=== PATIENT | male | born 1970 | race Caucasian/White ===

== ENCOUNTER 2022-07-20 09:25 | Outpatient (CLI) | payer BC ==
[2022-07-20 09:40] LABS: #Basophils 0.1 thou/uL (0.0-0.2); #Lymphocytes 1.2 thou/uL (1.20-3.40); #Monocytes 0.5 thou/uL (0.11-0.59); #Neutrophils 3.5 thou/uL (1.40-6.50); %Basophils 1.2 % (0.0-1.0); %Eosinophils 0.1 % (0.0-10.0); %Lymphocytes 23.1 % (21.0-51.0); %Monocytes 9.9 % (0.0-10.0); %Neutrophils 65.8 % (42.0-75.0); Hemoglobin 14.7 g/dL (14.0-18.0); Mean Corpuscular HGB CONC 31.7 g/dL (32.0-36.0); Mean Corpuscular Hemoglobin 28.4 pg (27.0-31.0); Mean Corpuscular Volume 89.5 fL (78.0-98.0); Mean Platelet Volume 11.4 fL (7.4-10.4); Platelet Count 182 thou/uL (130-400); RBC Distribution Width 11.6 % (11.5-14.5); White Blood Cell (WBC) Count 5.3 thou/uL (4.8-10.8)
[2022-07-20 09:49] LABS: Bilirubin Negative (Negative); Blood, Urine Negative (Negative); Clarity Slightly Cloudy (Clear); Glucose, Urine (Dipstick) Negative (Negative); Ketone, Urine Negative (Negative); Leukocyte Negative (Negative); Nitrite Negative (Negative); Protein, Urine (Dipstick) Negative (Neg-Trace); Specific Gravity, Urine 1.025 (1.005-1.030); Urobilinogen 0.2 mg/dL (Less than 2)
[2022-07-20 09:57] LABS: Bacteria/HPF None Seen HPF (None Seen); Squamous Epithelial 0-3 HPF (0-3); Transitional Epithelial 0-3 HPF (None Seen); WBC/HPF 0-3 HPF (0-3)
[2022-07-20 10:00] LABS: ALT (SGPT) 26 U/L (8-55); AST (SGOT) 19 U/L (5-34); Albumin 4.5 g/dL (3.5-5.0); Alkaline Phosphatase 98 U/L (40-110); Anion Gap 12 mmol/L (10-20); BUN (Urea Nitrogen) 16 mg/dL (8.4-25.7); Bilirubin, Total 2.5 mg/dL (0.2-1.2); Calc. Creatinine Clearance 0 mL/min (70-130); Calcium 9.2 mg/dL (7.8-10.44); Carbon Dioxide 27 mmol/L (22-29); Cardiac Risk 2.3 (Less than 4.5); Chloride 106 mmol/L (98-107); Cholesterol 105 mg/dl (< 200 Desired); Estimated GFR 75; Glucose 98 mg/dL (70-105); HDL Cholesterol 46 mg/dL (>60 Neg Risk); LDL Cholesterol, Calculated 47 mg/dL; Potassium 4.4 mmol/L (3.5-5.1); Protein, Total 7.5 g/dL (6.0-8.3); RBC/HPF 0-3 HPF (0-3); Sodium 141 mmol/L (136-145); Triglycerides 58 mg/dL (Less than 150)
[2022-07-20 10:21] LABS: Thyroid Stimulating Hormone 1.2187 uIU/mL (0.35-4.94)
[2022-07-20 17:38] LABS: PSA-Asymptomatic (SCREENING) 0.95 ng/mL (0-4.0)
== END 2022-07-20 09:26 | disposition home or self-care (01) ==
LOC: MADLAB 09:25
PROVIDERS: ATTEND Family Medicine
DX: Z00.00 Encounter for general adult medical examination without abnormal findings (principal)
CPT/HCPCS: 36415; 80053; 80061; 81001; 84443; 85025; G0103

== ENCOUNTER 2025-09-13 07:21 | Outpatient (CLI) | payer BC ==
[2025-09-13 07:58] LABS: ALT (SGPT) 15 U/L (Less than 45); AST (SGOT) 22 U/L (11-34); Albumin 4.4 g/dL (3.1-4.5); Alkaline Phosphatase 91 U/L (40-110); Anion Gap 17 mmol/L (10-20); BUN (Urea Nitrogen) 17 mg/dL (8.4-25.7); Bilirubin, Total 2.1 mg/dL (0.3-1.2); Calc. Creatinine Clearance 0 mL/min (70-130); Calcium 9.0 mg/dL (7.8-10.44); Carbon Dioxide 24 mmol/L (22-29); Cardiac Risk 2.9 (Less than 4.5); Chloride 105 mmol/L (98-107); Cholesterol 128 mg/dl (< 200 Desired); Globulin 3.2 g/dL (2.4-3.5); Glucose 100 mg/dL (70-105); HDL Cholesterol 44 mg/dL (>60 Neg Risk); LDL Cholesterol, Calculated 62 mg/dL; Potassium 3.9 mmol/L (3.5-5.1); Sodium 142 mmol/L (136-145); Triglycerides 109 mg/dL (Less than 150)
[2025-09-13 08:18] LABS: Thyroid Stimulating Hormone 1.0536 uIU/mL (0.35-4.94)
[2025-09-13 08:20] LABS: Glucose, Urine (Dipstick) Negative (Negative); Leukocyte Negative (Negative); Protein, Urine (Dipstick) Negative (Neg-Trace); Specific Gravity, Urine 1.020 (1.005-1.030)
[2025-09-13 08:30] LABS: Bacteria/HPF Rare-Few HPF (None Seen); RBC/HPF 0-3 HPF (0-3); WBC/HPF 0-3 HPF (0-3)
[2025-09-13 08:37] LABS: #Basophils 0.1 thou/uL (0.0-0.2); #Eosinophils 0.1 thou/uL (0.0-0.7); #Lymphocytes 1.4 thou/uL (1.20-3.40); #Monocytes 0.4 thou/uL (0.11-0.59); #Neutrophils 3.3 thou/uL (1.40-6.50); %Basophils 1.3 % (0.0-1.0); %Eosinophils 1.0 % (0.0-10.0); %Lymphocytes 26.5 % (21.0-51.0); %Monocytes 7.6 % (0.0-10.0); %Neutrophils 63.6 % (42.0-75.0); Hematocrit 46.8 % (42.0-52.0); Hemoglobin 15.1 g/dL (14.0-18.0); Mean Corpuscular Hemoglobin 28.6 pg (27.0-31.0); Mean Corpuscular Volume 88.5 fl (78.0-98.0); Platelet Count 252 10x3/uL (130-400); Red Blood Cell (RBC) Count 5.29 mill/uL (4.70-6.10); White Blood Cell (WBC) Count 5.2 10x3/uL (4.8-10.8)
[2025-09-13 12:46] LABS: PSA-Asymptomatic (SCREENING) 1.054 ng/mL (0-4.0)
== END 2025-09-13 07:22 | disposition home or self-care (01) ==
LOC: MADLAB 07:21
PROVIDERS: ATTEND Family Medicine
DX: Z00.00 Encounter for general adult medical examination without abnormal findings (principal); Z12.5 Encounter for screening for malignant neoplasm of prostate; I25.10 Atherosclerotic heart disease of native coronary artery without angina pectoris; E78.00 Pure hypercholesterolemia, unspecified; I10 Essential (primary) hypertension
CPT/HCPCS: 36415; 80053; 80061; 81001; 82172; 84443; 85025; G0103